=== PATIENT | female | born 1945 | race African-American/Black ===

== ENCOUNTER 2020-03-03 20:38 | Inpatient (IN) | payer MEDICARE, MEDICAID ==
[~2020-03-03] VITALS: Ht 162.6 cm; Wt 68.9 kg
[2020-03-03] MEDS ORDERED: ASPIRIN 81MG TABLET PO ONE (22:15)
[2020-03-03 22:53] LABS: BASOPHILS % 1.1 % (0.0-2.0); EOSINOPHILS % 3.7 % (0.0-5.0); HEMATOCRIT. 36.3 % (36.0-48.0); LYMPHOCYTES % 33.6 % (20.0-50.0); MEAN CORPUSCULAR HEMOGLOBIN 29.1 pg (28.0-32.0); MEAN CORPUSCULAR VOLUME 87.9 fL (81.0-99.0); MEAN PLATELET VOLUME 8.8 fl (7.4-10.4); MONOCYTES % 9.6 % (2.0-8.0); PLATELET 219 x1000/uL (130-400); RED BLOOD CELL COUNT 4.13 mill/uL (4.2-5.4)
[2020-03-03 22:58] LABS: CHLORIDE 103 mEq/L (98-107)
[2020-03-03] MEDS ORDERED: AZITHROMYCIN 500 MG in DEXT 5% WATER 250 ML IV STA (23:52)
[2020-03-04] MEDS ORDERED: CEFTRIAXONE 2 G PREMIX 50 ML IV ONE
[2020-03-04 05:36] VITALS: BP 127/88
[2020-03-04] MEDS ORDERED: ALBUTEROL 6.7GM HFA INHALER ORI PRN (06:45)
[2020-03-04 09:05] VITALS: BP 140/86
[2020-03-04] MEDS: ASPIRIN 81MG TABLET PO SCH (09:26)
[2020-03-04] MEDS: ENOXAPARIN 40MG/0.4ML SYR SUBCUT SCH (09:27)
[2020-03-04] MEDS: MORPHINE SULFATE 2 MG/ML CPJ (NOT FOR IM USE) IV PRN ×3 (11:44→22:09)
[2020-03-04 12:26] VITALS: BP 139/81
[2020-03-04 17:04] VITALS: BP 139/84
[2020-03-04 20:00] VITALS: BP 135/80
[2020-03-04] MEDS ORDERED: ZOLPIDEM TARTRATE 5MG TABLET PO PRN (21:00)
[2020-03-04 21:03] LABS: CLARITY URINE CLEAR (CLEAR); COLOR URINE YELLOW (YELLOW); KETONES URINE NEGATIVE (NEGATIVE); LEUKOCYTE ESTERASE URINE 3+ (NEGATIVE); NITRITE URINE NEGATIVE (NEGATIVE); OCCULT BLOOD URINE NEGATIVE (NEGATIVE); PROTEIN URINE NEGATIVE (NEGATIVE); SPECIFIC GRAVITY URINE 1.017 (1.005-1.030); UROBILINOGEN URINE 0.2 E.U./dL (0.2-1.0)
[2020-03-04 21:47] LABS: *AMPHETAMINES SCREEN URINE NEGATIVE (NEGATIVE); *BARBITURATES SCREEN URINE NEGATIVE (NEGATIVE); *BENZODIAZEPINES SCREEN URINE NEGATIVE (NEGATIVE); *COCAINE SCREEN URINE PRESUMTIVE POSITIVE (NEGATIVE)
[2020-03-04 21:48] LABS: CANNABINOID URINE SCREEN NEGATIVE (NEGATIVE); METHADONE URINE SCREEN NEGATIVE (NEGATIVE); OPIATES URINE SCREEN PRESUMTIVE POSITIVE (NEGATIVE); PHENCYCLIDINE URINE SCREEN NEGATIVE (NEGATIVE)
[2020-03-04] MEDS ORDERED: IOHEXOL-350 100 ML BOTTLE ONE (23:26)
[2020-03-05] VITALS: BP 153/79
[2020-03-05] MEDS ORDERED: CEFTRIAXONE 1 G PREMIX 50 ML IV SCH
[2020-03-05] MEDS ORDERED: AZITHROMYCIN 500 MG in DEXT 5% WATER 250 ML IV SCH (01:00)
[2020-03-05 04:00] VITALS: BP 150/84
[2020-03-05 07:47] VITALS: BP 150/84
[2020-03-05] MEDS: MORPHINE SULFATE 2 MG/ML CPJ (NOT FOR IM USE) IV PRN (07:47)
[2020-03-05] MEDS ORDERED: ALBU18HF2 IH (09:25)
[2020-03-05] MEDS: ENOXAPARIN 40MG/0.4ML SYR SUBCUT SCH (09:41)
[2020-03-05] MEDS: ASPIRIN 81MG TABLET PO SCH (09:42)
== END 2020-03-05 15:03 | disposition home or self-care (01) | DRG 136 ==
LOC: ER 20:38 → MICUSO 23:54 → 7WST 03-04 05:15
PROVIDERS: ADMIT Internal Medicine; ATTEND Internal Medicine
DX: C78.00 Secondary malignant neoplasm of unspecified lung (principal); E44.0 Moderate protein-calorie malnutrition; F17.210 Nicotine dependence, cigarettes, uncomplicated; I10 Essential (primary) hypertension; J45.909 Unspecified asthma, uncomplicated; Z20.828 Contact with and (suspected) exposure to other viral communicable diseases; Z68.26 Body mass index [BMI] 26.0-26.9, adult; Z85.3 Personal history of malignant neoplasm of breast; Z71.6 Tobacco abuse counseling
CPT/HCPCS: 36415; 71045; 71275; 80053; 80061; 80305; 81003; 83880; 84443; 84484; 85025; 85379; 87804; 93005; 96365; 99285; J0456; J0696; J1650; J2270; J7060; Q9967; U0003-CS